=== PATIENT | female | born 1985 | race Caucasian/White ===

== ENCOUNTER 2018-07-17 07:25 | Emergency (ER) | payer BC ==
[2018-07-17] MEDS ORDERED: Cephalexin CAP* 500 MG PO ONE (07:51)
[2018-07-17] MEDS ORDERED: Dexamethasone IV* 4 MG/ML 1 ML (4 MG) IM ONE (07:51)
--- NOTE | 2018-07-17 07:54 | ED ---
Allergic Reaction/Systemic - HPI Summary HPI Summary: A 32 y/o female presents to [facility] with a chief complaint of a possible allergic reaction since two days ago. 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 She denies wearing gold or nickel jewelry. She felt fine until the morning of 07/15/18 when her face was swollen. She describes her pain as a burn, claiming that she gets itchy around her eyes when the swelling around her eyes goes down. She c/o hives on her neck. She went to her PCP and was given Xyzal, but it has not alleviated her symptoms. She reports that in April 2018 she had similar symptoms and was given 3 days of Prednisone after going to . At triage she rated her pain as a 3/10 in severity. She denies fevers, chills, nausea, vomiting, difficulty swallowing or difficulty breathing. - History of Current Complaint Chief Complaint: EDAllergicReaction Time Seen by Provider: 07/17/18 07:32 Hx Obtained From: Patient Hx Last Menstrual Period: 2 WEEKS AGO Onset/Duration: Sudden Onset, Started days ago, Still Present Timing: Constant, Lasting Days Severity Initially: Moderate Severity Currently: Moderate Pain Intensity: 3 Pain Scale Used: 0-10 Numeric Location: Diffuse Character: Swelling Aggravating Factor(s): Nothing Alleviating Factor(s): Nothing Associated Signs And Symptoms: Negative: Difficulty Breathing, Nausea, Throat Tightening, Vomiting - Allergies/Home Medications Allergies/Adverse Reactions: Allergies Allergy/AdvReac Type Severity Reaction Status Date / Time No Known Allergies Allergy Verified 07/17/18 07:31 PMH/Surg Hx/FS Hx/Imm Hx Endocrine/Hematology History: Denies: Hx Diabetes, Hx Thyroid Disease Cardiovascular History: Denies: Hx Hypertension Respiratory History: Denies: Hx Asthma, Hx Chronic Obstructive Pulmonary Disease (COPD) GI History: Denies: Hx Ulcer Infectious Disease History: No Infectious Disease History: Denies: Hx Clostridium Difficile, Hx Hepatitis, Hx Human Immunodeficiency Virus (HIV), Hx of Known/Suspected MRSA, Hx Shingles, Hx Tuberculosis, Hx Known/ Suspected VRE, Hx Known/Suspected VRSA, History Other Infectious Disease, Traveled Outside the [place] in Last 30 Days - Family History Known Family History: Negative: Blood Disorder - Social History Alcohol Use: None Substance Use Type: Reports: None Smoking Status (MU): Current Every Day Smoker Type: Cigarettes Amount Used/How Often: 8 CIG/DAY Length of Time of Smoking/Using Tobacco: 10 years Have You Smoked in the Last Year: Yes Review of Systems Negative: Fever, Chills ENT: Negative - difficulty swallowing Negative: Shortness Of Breath Negative: Vomiting, Nausea Positive: Edema Positive: Other - positive: hives on neck, facial swelling All Other Systems Reviewed And Are Negative: Yes Physical Exam - Summary Physical Exam Summary: GENERAL: Patient is a well-developed and nourished F who is lying comfortable in the stretcher. Patient is not in any acute respiratory distress. HEAD AND FACE: Normocephalic EYES: PERRLA, EOMI x 2. EARS: Hearing grossly intact. MOUTH: Oropharynx within normal limits. NECK: Supple, trachea is midline, no adenopathy, no JVD, no carotid bruit. CHEST: Symmetric, no tenderness at palpation LUNGS: Clear to auscultation bilaterally. No wheezing or crackles. CVS: Regular rate and rhythm, S1 and S2 present, no murmurs or gallops appreciated. ABDOMEN: Soft, non-tender. Bowel sounds are normal. No abdominal abnormal pulsations. EXTREMITIES: Full ROM in all major joints, no edema, no cyanosis or clubbing. NEURO: Alert and oriented x 3. No acute neurological deficits. Speech is normal and follows commands. SKIN: Erythematous face, hives on neck, periorbital edema Triage Information Reviewed: Yes Vital Signs On Initial Exam: Initial Vitals Temp Pulse Resp BP Pulse Ox 99.3 F 70 16 110/74 100 07/17/18 07:28 07/17/18 07:28 07/17/18 07:28 07/17/18 07:28 07/17/18 07:28 Vital Signs Reviewed: Yes Diagnostics - Vital Signs Vital Signs Temp Pulse Resp BP Pulse Ox 07/17/18 07:28 99.3 F 70 16 110/74 100 - Laboratory Lab Statement: Any lab studies that have been ordered have been reviewed, and results considered in the medical decision making process. Re-Evaluation - Re-Evaluation First Eval Re-Evaluation Time: 07:59 Change: Unchanged Comment: Discussed plan and pt is stable for DC Allergic Reaction Course/Dx - Course Course Of Treatment: A 32 y/o female presents to [facility] with a chief complaint of a possible allergic reaction since two days ago. The physical exam revealed erythema on her face, hives on neck, periorbital edema The patient will be discharged with prescriptions for Keflex and Prednisone. I discussed results with patient and she reports feeling better. She is hemodynamically stable and safe for discharge. Strict return precautions given and she will otherwise follow up with her PCP. - Diagnoses Provider Diagnoses: Allergic reaction Discharge - Sign-Out/Discharge Documenting (check all that apply): Patient Departure - DC Patient Received Moderate/Deep Sedation with Procedure: No - Discharge Plan Condition: Stable Disposition: HOME Prescriptions: Cephalexin CAP* [Keflex CAP*] 500 mg PO QID #28 cap predniSONE [Prednisone 20 MG TAB] 40 mg PO DAILY #8 tablet Referrals: Cristina Khan PA [Primary Care Provider] - (1-3 days) Additional Instructions: Follow up with your primary care physician in 1-3 days. RETURN TO THE EMERGENCY DEPARTMENT FOR CHANGING OR WORSENING SYMPTOMS. - Billing Disposition and Condition Condition: STABLE Disposition: Home - Attestation Statements Document Initiated by Maria De Jesus: Yes Documenting Scribe: Norbert Cruz Provider For Whom Maria De Jesus is Documenting (Include Credential): Frederick Fregoso MD Scribe Attestation: I, Norbert Cruz, scribed for Frederick Fregoso MD on 07/18/18 at 0721. Scribe Documentation Reviewed: Yes Provider Attestation: The documentation as recorded by the Norbert mena accurately reflects the service I personally performed and the decisions made by me, Jacobo Fregoso MD Status of Scribe Document: Viewed
[2018-07-17 08:26] VITALS: BP 99/67
== END 2018-07-17 08:25 | disposition home or self-care (01) ==
LOC: ED 07:25
DX: T78.40XA Allergy, unspecified, initial encounter (principal); L50.9 Urticaria, unspecified; R60.9 Edema, unspecified; X58.XXXA Exposure to other specified factors, initial encounter; F17.210 Nicotine dependence, cigarettes, uncomplicated
CPT/HCPCS: 96372; 99282; A9270-GY; J1100

== ENCOUNTER 2018-12-13 11:32 | Emergency (ER) | payer BC ==
[2018-12-13 12:25] VITALS: BP 93/60
--- NOTE | 2018-12-13 12:35 | UC ---
Complaint Female HPI - HPI Summary HPI Summary: Uti sx worsening --pain, burning over past 2 days, now has left flank pain and a fever that is approaching 100. no nausea or vomiting - History Of Current Complaint Chief Complaint: UCGU Stated Complaint: URINARY ISSUE Time Seen by Provider: 12/13/18 12:29 Hx Obtained From: Patient Hx Last Menstrual Period: 11/29/18 ?: No Onset/Duration: Sudden Onset, Lasting Days - 2, Worse Since - today Timing: Constant Pain Intensity: 6 Pain Scale Used: 0-10 Numeric Character: Burning Aggravating Factor(s): Urination Alleviating Factor(s): Nothing Associated Signs And Symptoms: Positive: Back Pain - Allergies/Home Medications Allergies/Adverse Reactions: Allergies Allergy/AdvReac Type Severity Reaction Status Date / Time No Known Allergies Allergy Verified 12/13/18 12:24 PMH/Surg Hx/FS Hx/Imm Hx Previously Healthy: Yes - Surgical History Surgical History: Yes Surgery Procedure, Year, and Place: oral surgery - Family History Known Family History: Positive: None Negative: Blood Disorder - Social History Occupation: Employed Full-time Lives: With Family Alcohol Use: Occasionally Substance Use Type: None Smoking Status (MU): Former Smoker Type: Cigarettes Amount Used/How Often: 8 CIG/DAY Length of Time of Smoking/Using Tobacco: 10 years Have You Smoked in the Last Year: Yes Review of Systems All Other Systems Reviewed And Are Negative: Yes Constitutional: Positive: Negative Skin: Positive: Negative Eyes: Positive: Negative ENT: Positive: Negative Respiratory: Positive: Negative Cardiovascular: Positive: Negative Gastrointestinal: Positive: Negative Genitourinary: Positive: Dysuria, Frequency, Urgency Motor: Positive: Negative Neurovascular: Positive: Negative Musculoskeletal: Positive: Negative Neurological: Positive: Negative Psychological: Positive: Negative Is Patient Immunocompromised?: No Physical Exam Triage Information Reviewed: Yes Appearance: Well-Appearing, No Pain Distress, Well-Nourished Vital Signs: Initial Vital Signs Temp 99.7 F 12/13/18 12:18 Pulse 74 12/13/18 12:18 Resp 16 12/13/18 12:18 BP 93/60 12/13/18 12:18 Pulse Ox 100 12/13/18 12:18 Vital Signs Reviewed: Yes Eye Exam: Normal Eyes: Positive: Conjunctiva Clear ENT Exam: Normal ENT: Positive: Normal ENT inspection, Hearing grossly normal, Pharynx normal. Negative: Nasal congestion, Trismus, Muffled voice, Hoarse voice Dental Exam: Normal Neck exam: Normal Neck: Positive: Supple, Nontender, No Lymphadenopathy Respiratory Exam: Normal Respiratory: Positive: Chest non-tender, Lungs clear, Normal breath sounds, No respiratory distress, No accessory muscle use Cardiovascular Exam: Normal Cardiovascular: Positive: RRR, No Murmur, Pulses Normal, Brisk Capillary Refill Musculoskeletal Exam: Normal Musculoskeletal: Positive: Strength Intact, ROM Intact, No Edema Neurological Exam: Normal Neurological: Positive: Alert, Muscle Tone Normal Psychological Exam: Normal Skin Exam: Normal Diagnostics - Laboratory Lab Results: +3 leuko-esterace, +2 blood Complaint Female Dx - Course Course Of Treatment: Rocephin now, keflex, pyridium, increase fluids, follow with pcp as needed to ed for worsening sx, culture urine - Differential Dx/Diagnosis Provider Diagnosis: UTI (urinary tract infection) Discharge - Sign-Out/Discharge Documenting (check all that apply): Patient Departure All imaging exams completed and their final reports reviewed: No Studies - Discharge Plan Condition: Stable Disposition: HOME Prescriptions: Cephalexin CAP* [Keflex CAP*] 500 mg PO BID #14 cap Phenazopyridine TAB* [Pyridium 100 mg TAB*] 100 mg PO TID PRN #9 tab PRN Reason: urinary pain/burning Patient Education Materials: Urinary Tract Infection in Women (DC) Referrals: Cristina Khan PA [Primary Care Provider] - 7 Days - Billing Disposition and Condition Condition: STABLE Disposition: Home - Attestation Statements Provider Attestation: I was available for consult. This patient was seen by the JO-ANN. The patient was not presented to , seen by or examined by la -Rakesh Mir MD
[2018-12-13] MEDS ORDERED: cefTRIAXone VIAL(*) 1,000 MG VIAL IM ONE (12:57)
[2018-12-13] MEDS ORDERED: Lidocaine 1% MPF ** 5 ML VIAL IM ONE (12:58)
--- NOTE | 2018-12-14 15:32 | UC ---
- Progress Note Progress Note: Urine culture report reviewed. >100,000 cfu/ml Stapylococcus saprophyticus. Patient received Rocephin and placed on keflex which should cover for this organism. If patient's symptoms are improving no change in plan of care. Nursing to notify patient and see if symptoms are improving. Course/Dx - Diagnoses Provider Diagnoses: UTI (urinary tract infection) Discharge - Sign-Out/Discharge Documenting (check all that apply): Post-Discharge Follow Up All imaging exams completed and their final reports reviewed: No Studies - Discharge Plan Condition: Stable Disposition: HOME Prescriptions: Cephalexin CAP* [Keflex CAP*] 500 mg PO BID #14 cap Phenazopyridine TAB* [Pyridium 100 mg TAB*] 100 mg PO TID PRN #9 tab PRN Reason: urinary pain/burning Patient Education Materials: Urinary Tract Infection in Women (DC) Referrals: Cristina Khan PA [Primary Care Provider] - 7 Days - Billing Disposition and Condition Condition: STABLE Disposition: Home
== END 2018-12-13 13:25 | disposition home or self-care (01) ==
LOC: UCEAST 11:32
DX: N39.0 Urinary tract infection, site not specified (principal); B95.7 Other staphylococcus as the cause of diseases classified elsewhere; Z87.891 Personal history of nicotine dependence
CPT/HCPCS: 81003; 81025; 87086; 87088; 96372; 99212; G0463; J0696

== ENCOUNTER 2019-11-25 08:23 | Inpatient (IN) ==
[2019-11-25] MEDS ORDERED: Lactated Ringers 1000 ml BAG 1,000 ML IV ONE (09:45)
[2019-11-25] MEDS ORDERED: Oxytocin in LR 20 UNITS/1,000 ML BAG IVPB SCH (10:00)
[2019-11-25 10:57] LABS: ABS Eosinophils 0.1 10^3/ul (0-0.6); ABS Lymphocytes 1.8 10^3/ul (1.0-4.8); ABS Monocytes 0.7 10^3/ul (0-0.8); ABS Neutrophils 9.4 10^3/ul (1.5-7.7); Eosinophil % 0.7 %; Hematocrit 39 % (35-47); Lymphocyte % 14.7 %; Mean Corpuscular HGB Conc 36 g/dL (31-36); Mean Corpuscular Hemoglobin 34 pg (27-31); Mean Corpuscular Volume 94 fL (80-97); Mean Platelet Volume 9.9 fL (7.4-10.4); Platelet Count 182 10^3/uL (150-450); Red Blood Count 4.16 10^6 /uL (3.70-4.87); Red Cell Distribution Width 13 % (10-15)
[2019-11-25 11:08] LABS: Urine Benzodiazepine Screen None Detected (None Detect); Urine Cannabinoids Screen None Detected (None Detect); Urine Opiates Screen None Detected (None Detect)
[2019-11-25] MEDS: Lactated Ringers 1000 ml BAG 1,000 ML IV SCH ×2 (11:42→18:55)
[2019-11-26] MEDS ORDERED: OBEPIDURAL 250 ML EPIDURAL ONE (19:15)
[2019-11-26] MEDS ORDERED: Lactated Ringers 1000 ml BAG 1,000 ML IV ONE (20:00)
[2019-11-26] MEDS ORDERED: OBEPIDURAL 250 ML EPIDURAL SCH (20:00)
[2019-11-26] MEDS ORDERED: Lactated Ringers 1000 ml BAG 1,000 ML IV SCH (20:00)
[2019-11-26] MEDS ORDERED: Phenylephrine 40 mcg/mL 10mL (400mcg) SYRINGE IV PUSH PRN ×2 (20:00)
[2019-11-26] MEDS ORDERED: Ondansetron 4 mg VIAL 2 MG/ML 2 ml VIAL IV PRN (20:00)
[2019-11-26] MEDS ORDERED: EPHEDrine (Pressors) 50 MG/ML VIAL IV PUSH PRN ×2 (20:00)
[2019-11-26] MEDS ORDERED: Lactated Ringers 500 ml BAG 500 ML IV PRN (20:00)
[2019-11-26] MEDS ORDERED: Sodium Citrate/Citric Acid LIQ 15 ML UDC PO PRN (20:00)
[2019-11-27] MEDS ORDERED: Methylergonovine 0.2 mg AMPULE 1 ml AMP ONE (08:17)
[2019-11-27] MEDS ORDERED: Dibucaine 1% OINT 28.35 GM TUBE PR PRN (08:18)
[2019-11-27] MEDS ORDERED: Witch Hazel PAD JAR TOPICAL PRN (08:18)
[2019-11-27] MEDS ORDERED: Glycerin ADULT 2.4 gm SUPP PR PRN (08:18)
[2019-11-27] MEDS ORDERED: Oxytocin in LR 20 UNITS/1,000 ML BAG IVPB SCH (09:00)
[2019-11-27] MEDS ORDERED: Ammonia Inhalant 1 EA AMP ONE (10:42)
[2019-11-27] MEDS ORDERED: Lidocaine 1% VIAL 10 MG/ML VIAL ONE (11:07)
[2019-11-28] MEDS ORDERED: RHO D Immune Globulin (HUMAN) 300 MCG = 1,500 I.U. INJ IM ONE (06:00)
[2019-11-28 08:36] LABS: ABS Basophils 0.1 10^3/ul (0-0.2); ABS Eosinophils 0.2 10^3/ul (0-0.6); ABS Lymphocytes 2.1 10^3/ul (1.0-4.8); ABS Monocytes 1.2 10^3/ul (0-0.8); ABS Neutrophils 14.2 10^3/ul (1.5-7.7); Hematocrit 31 % (35-47); Hemoglobin 10.5 g/dL (12.0-16.0); Lymphocyte % 12.1 %; Mean Corpuscular HGB Conc 35 g/dL (31-36); Mean Corpuscular Hemoglobin 33 pg (27-31); Mean Corpuscular Volume 96 fL (80-97); Mean Platelet Volume 9.8 fL (7.4-10.4); Platelet Count 172 10^3/uL (150-450); Red Blood Count 3.19 10^6 /uL (3.70-4.87); Red Cell Distribution Width 13 % (10-15); White Blood Count 17.8 10^3/uL (3.5-10.8)
[2019-11-29 07:18] VITALS: BP 112/75
== END 2019-11-29 13:10 | disposition home or self-care (01) | DRG 560 ==
LOC: MCHOBOUT 08:23 → MCHOB 09:29
PROVIDERS: ADMIT Midwife; ATTEND Midwife

== ENCOUNTER 2023-11-28 12:44 | Observation (INO) ==
[2023-11-28 14:24] LABS: ABS Lymphocytes 0.7 10^3/uL (1.0-4.8); ABS Monocytes 0.8 10^3/uL (0.0-0.9); Eosinophil % 0.1 %; Hematocrit 41.5 % (35-45); Hemoglobin 13.8 g/dL (11.5-14.3); Lymphocyte % 7.2 %; Mean Corpuscular Hemoglobin 31.1 pg (27-33); Mean Corpuscular Hgb Conc 33.3 g/dL (31-36); Mean Corpuscular Volume 93.3 fL (80-97); Mean Platelet Volume 8.7 fL (7.5-11.2); Platelet Count 265 10^3/uL (150-450); Red Blood Count 4.45 10^6/uL (3.63-4.92); Red Cell Distribution Width 13.2 % (12-17); White Blood Count 9.5 10^3/uL (3.8-11.8)
[2023-11-28] MEDS: Albuterol HFA INHALER 8 gm MDI INH ONE (14:24)
[2023-11-28] MEDS: methylPREDNISolone SOD SUCC 125 mg 2 ML VIAL IV ONE (14:25)
[2023-11-28 14:27] LABS: Activated Partial Thrombo Time 31.2 seconds (26.0-38.0); INR 1.31 (0.83-1.13)
[2023-11-28] MEDS: cefTRIAXone 1 gm/50 mL D5W 1 GM/50 ML BAG IV ONE (14:28)
[2023-11-28 14:43] LABS: ALT 35 U/L (7-52); Albumin 3.4 g/dL (3.2-5.2); Albumin/Globulin Ratio 1.1 (1-3); Alkaline Phosphatase 122 U/L (35-149); Anion Gap 6 mmol/L (2-16); Blood Urea Nitrogen 8 mg/dL (6-24); C Reactive Protein 184.91 mg/L (<8.01); CO2 Carbon Dioxide 25 mmol/L (22-32); Calcium 8.5 mg/dL (8.6-10.3); Chloride 102 mmol/L (101-111); Creatinine, Serum 0.54 mg/dL (0.51-0.95); Glucose 100 mg/dL (70-100); Sodium 133 mmol/L (135-145); Total Bilirubin 0.3 mg/dL (0.2-1.0); Total Protein 6.4 g/dL (6.4-8.9); eGFR CKD-EPI 120.8 (>60)
[2023-11-28] MEDS: Lactated Ringers SEPSIS* BAG 1,780 ML IV ONE (15:02)
[2023-11-28] MEDS: Azithromycin 500 mg/250 ml NS 500 MG/250 ML BAG IVPB ONE (16:18)
[2023-11-28] MEDS: Albuterol HFA INHALER 8 gm MDI INH SCH (19:49)
[2023-11-29] MEDS: Albuterol HFA INHALER 8 gm MDI INH PRN (09:44)
[2023-11-29 10:32] VITALS: BP 98/55
[2023-11-29] MEDS ORDERED: cefTRIAXone 1 gm/50 mL D5W 1 GM/50 ML BAG IV SCH (13:00)
[2023-11-29] MEDS ORDERED: Azithromycin 500 mg/250 ml NS 500 MG/250 ML BAG IVPB SCH (16:00)
[2023-12-03 13:32] LABS: Mycoplasma pneumoniae IgG Ab Positive (Negative); Mycoplasma pneumoniae IgM Ab Reactive (Negative)
[2023-12-03 15:41] LABS: M pneumoniae IgM IFA Negative (Negative)
== END 2023-11-29 13:00 | disposition home or self-care (01) ==
LOC: ED 12:44 → EDHOLD 12:44 → MEDTELE 18:11
PROVIDERS: ADMIT Internal Medicine; ATTEND Internal Medicine